=== PATIENT | female | born 1945 | race Caucasian/White ===

== ENCOUNTER → 2016-11-06 | Outpatient (CLI) | payer MEDICARE, OTHER ==
[~2016-11-06] MED LIST: AMLODIPINE BESYL5 MG PO; ASPIRIN ENTERI325 M1 PO; B-COMPLEX-VITA1 EACH IJ; BAYER ASPIRIN325 M1 PO; CLARITIN10 M2 PO; CYMBALTA30 MG PO; FISH OIL 1,0001 CAP PO; FUROSEMIDE40 MG PO; HYDROCODON-ACE1 EAC9 PO; LEVOTHYROXINE50 MCG PO; LISINOPRIL30 MG PO; MELATONIN3 MG PO; MULTIVITAMIN1 UDCAP PO; NATURAL VITA400 UNI3 PO; NEXIUM PO; PRAVASTATIN SOD40 MG PO; PROMETRIUM100 MG PO; REQUIP1 MG PO; SINGULAIR PO; ULTRAM ER100 MG PO; VALIUM2 MG PO; VESICARE5 MG PO; VITAMIN E100 UNIT PO; ZEBETA5 MG PO; ZESTRIL30 MG PO; ZYRTEC10 M2 PO; [UNRECOGNIZED DRUG - OTHER]
--- NOTE | ~2016-11-06 | MY11 ---
[facility] A Service of [facility] / [facility] RADIOLOGY TEXT RESULTS PATIENT: AQUILES ESPINOZA LOCATION: [facility] : 49 UNIT #: [id number] AGE: [address]: Callie Correa MD SEX: F ORDER DR: [id number] [address] [address] [id number] O MR#: [id number] Acc #: [id number] NAME: AQUILES ESPINOZA : 1945 SEX: F STUDY DATE/TIME: 11/06/2016 9:54 UNIT: [facility] ROOM: STUDY DESCRIPTION: MY Mammogram Screening Dig David Attending Physician: Callie Correa M.D. Referring Physician: Callie Correa M.D. Ordering Physician: Callie Correa M.D. Primary Care Physician: Callie Correa M.D. MEDICAL IMAGING REPORT This report is preliminary unless electronic signature is present. EXAM Bilateral digital screening mammogram with CAD 11/06/2016. INDICATIONS 71-year-old female for routine screening. No reported problems and no personal history of breast cancer. Family history positive in a sister in her 40s. No surgeries. TECHNIQUE CC and MLO views of the breasts were obtained and reviewed with an approved CAD device. COMPARISON 05/22/2016, 10/03/2013, 08/02/2012 FINDINGS Breast parenchyma is composed of scattered fibroglandular densities. The pattern is unchanged. There is no new dominant nodule or mass in either breast. No new suspicious clustered microcalcifications. There are benign calcifications present. Faint benign-appearing nodularity in the left breast is stable. Prominent fibroglandular tissue in the upper hemisphere left breast on the MLO projection unchanged for technical factors dating back to 2008. IMPRESSION Benign screening mammogram 1 year followup recommended. Patients over the age of 40 are entered into a reminder system with target due date for the next mammogram. BIRADS: 2 Benign finding. [facility] A Service [facility] RADIOLOGY TEXT RESULTS PATIENT: AQUILES ESPINOZA LOCATION: [facility] : 49 UNIT #: [id number] AGE: [address]: Callie Correa MD SEX: F ORDER DR: Dictated by... Ra Reid M.D. THIS IS AN ELECTRONICALLY VERIFIED REPORT Ra Reid M.D. at 11/06/2016 3:14 PM NADIA/davida TD: 11/06/2016 14:16 JOB #: [id number] MEDICAL IMAGING REPORT Page 1 of 1
== END | disposition home or self-care (01) ==
LOC: SMAM 08:29
DX: Z12.31 Encounter for screening mammogram for malignant neoplasm of breast (principal); Z80.3 Family history of malignant neoplasm of breast
CPT/HCPCS: G0202